=== PATIENT | female | born 1960 | race Caucasian/White ===

== ENCOUNTER 2017-06-16 13:09 | Emergency (ER) | payer OTHER ==
[~2017-06-16] VITALS: Ht 165.1 cm; Wt 68.2 kg
[2017-06-16 13:11] VITALS: TEMP 98.1
[2017-06-16] MEDS ORDERED: BENICAR 20MG TA20 MG PO (13:25)
[2017-06-16] MEDS ORDERED: CARDIZEM CD360 MG PO (13:25)
[2017-06-16] MEDS ORDERED: CELEXA 20MG20 MG/TAB PO (13:26)
[2017-06-16] MEDS ORDERED: AMITRIPTYLINE H25 M1 PO (13:26)
[2017-06-16 13:41] LABS: BASO # 0.1 (0.0-0.2); BASO % 0.9 % (0.0-2.0); EOS % 0.5 % (0-4.0); GRAN # 6.1 (1.4-6.5); GRAN % 76.3 % (42.2-75.2); HEMATOCRIT 44.6 % (37.0-47.0); MEAN CELL VOLUME 103 fl (80.0-100.0); MEAN CORPUSCULAR HEMOGLOBIN 35 pg (27.0-31.0); MEAN CORPUSCULAR HGB CONC 34 g/dl (33.0-37.0); MEAN PLATELET VOLUME 11.2 fl (7.4-10.4); MONO # 0.8 (0.1-0.6); MONO % 10.1 % (1.7-9.3); PLATELET COUNT 172 K/mm3 (130-400); RED BLOOD COUNT 4.32 M/mm3 (4.10-5.30); WHITE BLOOD COUNT 8.1 K/mm3 (4.8-10.8)
[2017-06-16 15:17] LABS: ALBUMIN 4.4 gm/dL (3.5-5.0); BILIRUBIN,TOTAL 0.8 mg/dL (0.0-1.0); CALCIUM 9.3 mg/dL (8.4-10.2); CREATININE, serum 0.75 mg/dL (0.52-1.25); POTASSIUM 4.8 mmol/L (3.4-5.0); TOTAL PROTEIN 7.2 gm/dL (6.4-8.2)
[2017-06-16 15:22] LABS: COLLECTION METHOD CATHETER
[2017-06-16] MEDS ORDERED: NEXIUM 20MG20 MG PO (15:23)
[2017-06-16] MEDS ORDERED: BYSTOLIC10 MG PO (15:23)
[2017-06-16 15:28] LABS: HYALINE CAST >12 /lpf; MUCOUS Present /lpf; PH 5 (5-8); URINE APPEARANCE Hazy; URINE BACTERIA None Seen /hpf; URINE BILIRUBIN Negative (NEGATIVE); URINE BLOOD Negative (NEGATIVE); URINE COLOR Yellow; URINE GLUCOSE Negative (NEGATIVE); URINE KETONE Trace (NEGATIVE); URINE LEUKOCYTE ESTERASE Negative (NEGATIVE); URINE PROTEIN(semi-quant) Negative (NEGATIVE); URINE RBC 0-2 /hpf; URINE UROBILINOGEN Negative (NEGATIVE)
[2017-06-16] MEDS ORDERED: ZOFRAN 4MG T4 MG/TAB PO (16:36)
[2017-06-16 16:49] VITALS: BP 129/75; PULSE 77
== END 2017-06-16 16:50 | disposition home or self-care (01) ==
LOC: COL.ER 13:09
PROVIDERS: Emergency Medicine; Physician Assistant
DX: E87.1 Hypo-osmolality and hyponatremia (principal); R11.10 Vomiting, unspecified; R74.8 Abnormal levels of other serum enzymes; I10 Essential (primary) hypertension; K21.9 Gastro-esophageal reflux disease without esophagitis
CPT/HCPCS: J2405; J2550; J7030

== ENCOUNTER → 2017-10-03 | Outpatient (CLI) | payer OTHER ==
[~2017-10-03] MED LIST: AMITRIPTYLINE H25 M1 PO; BENICAR 20MG TA20 MG PO; BYSTOLIC10 MG PO; CARDIZEM CD360 MG PO; CELEXA 20MG20 MG/TAB PO; NEXIUM 20MG20 MG PO; ZOFRAN 4MG T4 MG/TAB PO
== END ==
LOC: COL.RAD 07:41
DX: R11.2 Nausea with vomiting, unspecified (principal)
CPT/HCPCS: A9541

== ENCOUNTER → 2018-06-10 | Outpatient (CLI) | payer OTHER | LOC: MC.RAD 09:29 | DX: Z12.31 Encounter for screening mammogram for malignant neoplasm of breast (principal) ==

== ENCOUNTER 2018-11-22 09:35 | Emergency (ER) | payer OTHER ==
[~2018-11-22] VITALS: Ht 165.1 cm; Wt 57.0 kg
[2018-11-22 09:38] VITALS: TEMP 97.3
[2018-11-22] MEDS ORDERED: BENICAR 20MG TA20 MG PO (09:44)
[2018-11-22] MEDS ORDERED: PRIL40 PO (09:44)
[2018-11-22] MEDS ORDERED: ZYRTEC 10MG10 MG PO (09:44)
[2018-11-22 10:27] LABS: BASO # 0.1 (0.0-0.2); BASO % 0.9 % (0.0-2.0); EOS % 0.2 % (0-4.0); GRAN # 3.9 (1.4-6.5); GRAN % 73.5 % (42.2-75.2); HEMOGLOBIN 10.5 g/dl (12.5-16.0); LYMPH # 0.5 (1.2-3.4); LYMPH % 9.6 % (20.0-51.0); MEAN CELL VOLUME 106 fl (80.0-100.0); MEAN CORPUSCULAR HEMOGLOBIN 36 pg (27.0-31.0); MEAN CORPUSCULAR HGB CONC 34 g/dl (33.0-37.0); MEAN PLATELET VOLUME 10.6 fl (7.4-10.4); MONO # 0.8 (0.1-0.6); MONO % 15.4 % (1.7-9.3); PLATELET COUNT 140 K/mm3 (130-400); RED BLOOD COUNT 2.91 M/mm3 (4.10-5.30); REDCELL DISTRIBUTION WIDTH-CV 14.6 % (11.5-14.5)
[2018-11-22 10:38] LABS: HEMATOCRIT 30.8 % (37.0-47.0)
[2018-11-22 10:40] LABS: ALANINE AMINOTRANSFERASE 80 U/L (9-52); ALBUMIN 3.7 gm/dL (3.5-5.0); ALKALINE PHOSPHATASE 82 U/L (50-136); ANION GAP 15 mmol/L (7-16); AST,SGOT 217 U/L (15-37); BILIRUBIN,TOTAL 1.4 mg/dL (0.0-1.0); BLOOD UREA NITROGEN 9 mg/dL (7-17); CALCIUM 9.3 mg/dL (8.4-10.2); CARBON DIOXIDE 25 mmol/L (22-30); CHLORIDE 90 mmol/L (98-107); CREATININE, serum 0.67 (0.52-1.25); GLUCOSE 152 mg/dL (74-106); LIPASE 106 U/L (23-300); POTASSIUM 3.9 mmol/L (3.4-5.0); SODIUM 130 mmol/L (137-145); TOTAL PROTEIN 6.4 gm/dL (6.4-8.2)
[2018-11-22 10:53] LABS: C-REACTIVE PROTEIN < 0.5 mg/dL (0.0-0.9)
[2018-11-22] MEDS ORDERED: CARAFATE 1GM1 G PO (11:29)
[2018-11-22 11:38] VITALS: BP 120/64; PULSE 70
== END 2018-11-22 11:39 | disposition home or self-care (01) ==
LOC: COL.ER 09:35
PROVIDERS: Nurse Practitioner Primary Care
DX: K29.70 Gastritis, unspecified, without bleeding (principal); D64.9 Anemia, unspecified; I10 Essential (primary) hypertension; K21.9 Gastro-esophageal reflux disease without esophagitis; F41.9 Anxiety disorder, unspecified
CPT/HCPCS: J2550; J7030

== ENCOUNTER 2022-01-16 18:13 | Emergency (ER) | payer OTHER ==
[~2022-01-16] VITALS: Ht 165.1 cm; Wt 63.6 kg
[~2022-01-16 18:13] MED LIST changes: +CARAFATE 1GM1 G PO; +PRIL40 PO; +ZYRTEC 10MG10 MG PO
[2022-01-16 18:18] VITALS: BP 144/90; PULSE 87; TEMP 98.1
== END 2022-01-16 20:57 | disposition home or self-care (01) ==
LOC: COL.ER 18:13
DX: S80.11XA Contusion of right lower leg, initial encounter (principal); Z28.310 Unvaccinated for COVID-19; W10.8XXA Fall (on) (from) other stairs and steps, initial encounter

== ENCOUNTER → 2022-01-17 | Outpatient (CLI) | payer OTHER | LOC: COL.VAS 08:02 | DX: M79.661 Pain in right lower leg (principal); M79.89 Other specified soft tissue disorders; I10 Essential (primary) hypertension; K21.9 Gastro-esophageal reflux disease without esophagitis ==

== ENCOUNTER 2024-04-02 23:12 | Emergency (ER) | payer OTHER ==
[~2024-04-02] VITALS: Ht 165.1 cm; Wt 76.6 kg
[2024-04-02 23:19] VITALS: TEMP 99.6
[2024-04-02] MEDS ORDERED: Ketorolac 60 MG/2 ML VIAL IM ONE (23:45)
[2024-04-03 00:38] VITALS: BP 156/82; PULSE 68
== END 2024-04-03 00:40 | disposition home or self-care (01) ==
LOC: COL.ER 23:12
DX: G62.9 Polyneuropathy, unspecified (principal)
CPT/HCPCS: J1885